=== PATIENT | female | born 1965 | race Caucasian/White ===

== ENCOUNTER 2016-10-22 16:21 | Inpatient (IN) | payer MEDICAID, SELFPAY ==
[~2016-10-22] VITALS: Ht 152.4 cm; Wt 82.7 kg
[2016-10-22] MEDS ORDERED: ZOLP5TAB PO (16:41)
[2016-10-22] MEDS ORDERED: LAMI25TA PO (16:41)
[2016-10-22] MEDS ORDERED: [UNRECOGNIZED DRUG - REMARK] PO (16:41)
[2016-10-22] MEDS ORDERED: HYDR25T PO (16:41)
[2016-10-22] MEDS ORDERED: [UNRECOGNIZED DRUG - CODE] PO (16:41)
[2016-10-22] MEDS ORDERED: FLUO40CA PO (16:41)
[2016-10-22 19:04] LABS: MEAN CORPUSCULAR HEMOGLOBIN 29.2 pg (27.0-33.0); MEAN CORPUSCULAR HGB CONC 31.8 g/dl (32.0-36.5); MEAN CORPUSCULAR VOLUME 91.6 fl (80.0-96.0); RED CELL DISTRIBUTION WIDTH 13.2 % (11.5-14.5); WHITE BLOOD COUNT 7.4 K/mm3 (4.0-10.0)
[2016-10-22 19:20] LABS: METHADONE URINE NEGATIVE (NEGATIVE)
[2016-10-22 19:24] LABS: ALBUMIN 3.4 GM/DL (3.2-5.2); ALKALINE PHOSPHATASE 87 U/L (45-117); ALT/SGPT 25 U/L (12-78); ANION GAP 7 MEQ/L (8-16); AST/SGOT 12 U/L (15-37); BILIRUBIN,DIRECT 0.1 MG/DL (0.0-0.2); BILIRUBIN,TOTAL 0.4 MG/DL (0.2-1.0); BLOOD UREA NITROGEN 12 MG/DL (7-18); CALCIUM LEVEL 8.4 MG/DL (8.5-10.1); CARBON DIOXIDE LEVEL 27 MEQ/L (21-32); CHLORIDE LEVEL 106 MEQ/L (98-107); GLOMERULAR FILTRATION RATE > 60.0 (>51); GLUCOSE, FASTING 95 MG/DL (70-105); POTASSIUM SERUM 4.1 MEQ/L (3.5-5.1); SODIUM LEVEL 140 MEQ/L (136-145); TOTAL PROTEIN 6.5 GM/DL (6.4-8.2)
[2016-10-22] MEDS: raNITIdine SYRUP 150 MG/10 ML UDC PO SCH (21:00)
[2016-10-22] MEDS ORDERED: RANI150T PO (21:36)
[2016-10-22] MEDS ORDERED: LAMO25TA2 PO (21:36)
[2016-10-22] MEDS ORDERED: OMEP20CA3 PO (21:36)
[2016-10-22] MEDS ORDERED: TYLE500T78 PO (21:37)
[2016-10-22] MEDS ORDERED: BENZ10LI12 EXT (21:37)
[2016-10-22 22:07] VITALS: BP 135/85
[2016-10-22] MEDS ORDERED: MOM 30ML SUSPENSION UDC PO PRN (23:45)
[2016-10-22] MEDS ORDERED: MAALOX 30 ML SUSP *UDC PO PRN (23:45)
[2016-10-22] MEDS ORDERED: ACETAMINOPHEN TAB 650MG DOSE (2X325MG) PO PRN (23:45)
[2016-10-23] MEDS: zolPIDEM TARTRATE 5 MG TAB PO PRN ×2 (00:23→20:44)
[2016-10-23 06:40] VITALS: BP 123/69
[2016-10-23] MEDS: lamoTRIgine 25 MG TAB PO SCH (09:05)
[2016-10-23] MEDS: OMEPRAZOLE 20 MG CAP PO SCH (09:05)
[2016-10-23] MEDS: FLUoxetine 20 MG CAP PO SCH (09:06)
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
[2016-10-23 12:38] LABS: CONTROL LINE HCG INT CTR LINE PRESENT
[2016-10-23 18:00] VITALS: BP 135/65
[2016-10-23] MEDS: hydrOXYzine 25 MG TAB PO PRN (20:44)
[2016-10-23] MEDS: raNITIdine SYRUP 150 MG/10 ML UDC PO SCH (20:45)
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
--- NOTE | 2016-10-23 22:24 | ECGEPIP ---
Stationary ECG Study [facility] Test Date: 2016-10-23 Pat Name: DAQUAN PEACE Department: Room: [place] [address] Gender: F Seismic Interpreter: SWETHA : 1965 Requested By: Elena Gillette Order Number: [id number] Reading MD: David Valencia Measurements Intervals Driscoll Rate: 59 P: 54 ND: 131 QRS: 71 QRSD: 100 T: 73 QT: 410 QTc: 407 Interpretive Statements SINUS BRADYCARDIA NO PRIOR Electronically Signed On 10-23-2016 22:24:22 EDT by David Valencia
[2016-10-24 06:24] VITALS: BP 142/65
[2016-10-24] MEDS: FLUoxetine 20 MG CAP PO SCH (08:52)
[2016-10-24] MEDS: OMEPRAZOLE 20 MG CAP PO SCH (08:52)
[2016-10-24] MEDS: lamoTRIgine 25 MG TAB PO SCH (08:53)
[2016-10-24] MEDS ORDERED: BENZOYL PEROXIDE 10% TOP SCH (09:00)
[2016-10-24] MEDS: VITAMIN D 1,000 INTERNATIONAL UNITS TABLET PO SCH (09:30)
[2016-10-24] MEDS: ACETAMINOPHEN 500 MG TAB PO PRN (17:23)
[2016-10-24 18:00] VITALS: BP 117/60
--- NOTE | 2016-10-24 18:21 | IPNPDOC ---
[facility] Progress Note Progress Note DATE OF SERVICE: 10/24/16 HISTORY: Patient is a 51-year-old female who presented to the emergency room after recent worsening of symptoms of depression and anxiety with passive suicidal ideation, as history of 3 prior suicide attempts via overdose on trazodone, pain killers and alcohol. Patient rates current anxiety level as 3/10 , depression 4/10, denies suicidal and homicidal ideation, denies audiovisual hallucinations, denies urge to engage in self-injurious behavior. Patient is observed to be resting in bed between groups, indicates she is experiencing "really bad sciatica," indicates she has received analgesic from nursing. Patient states she has been attending groups and has been visible in lounge. Patient informs health technical writer she feels her medications are "helping" and her symptoms are improved from yesterday, denies symptoms of mood lability, irritability, and racing thoughts, denies need for dosing adjustment at this time. Patient makes no request for discharge and states her boyfriend did not visit last night which is a disappointment but adds she understands due to his health. Patient indicates she is sleeping well, states appetite is stable, energy level remains low, and patient continues to experience reduced concentration and focus. Patient rates sciatica pain as 7/10, states she has been provided with analgesic by nursing, and presents with no signs of acute distress at time of interaction. VITAL SIGNS: See below. NEW TEST RESULTS: Please see below. Labs on admission indicated low MCHC, vitamin D, AST, anion gap. Patient has history of chronic back pain, GERD, endometriosis, 3, laparoscopies secondary to endometriosis, tonsillectomy/adenoidectomy, Niesen fundoplication. Patient denies history of head injury or seizure. HCG negative UDS positive for amphetamine 10/23/16 EKG sinus bradycardia no prior CURRENT MEDICATIONS: See below. MENTAL STATUS EXAMINATION: Patient is 2, mother of 3 children, partner in a relationship of 3 years, mildly disheveled, dressed in hospital clothing, makes good eye contact, is easily engaged, is calm and cooperative, is overweight, ambulates with steady gait, appears stated age. Speech: Is of normal rate, rhythm, volume, coherent, spontaneous Language skills are intact. Thought processes: Clear, goal-directed Thought content: Rational, logical Abstract reasoning: Appears intact Description of associations: Intact Description of abnormal or psychotic thoughts: denies hallucinations, delusions , preoccupation with violence, homicidal or suicidal ideation, and obsessions. Judgment: Fair Insight: Fair Orientation to time, place and person. Recent and remote memory: Appears intact Attention span and concentration: Fair Language: Normal. Fund of knowledge: Adequate Mood: "I feel little better today except for my sciatica pain." Patient appears anxious and depressed, mild mood lability noted Affect: Blunted but brightens, congruent with mood. DIAGNOSES: Adjustment disorder with mixed anxiety and depressed mood, unspecified mood disorder, rule out bipolar disorder ASSESSMENT: Patient appears to be adjusting to unit, is resting in bed between groups due to sciatica pain, has been visible and attending some groups. Patient expresses no concern today about being in hospital and having boyfriend who is chronically ill at home, verbalizes insight pertaining to need for hospitalization at this time for stabilization. Patient reiterates current medication regimen has been taking in the past with good effect, recently underwent antidepressant dose increase (~ 3 weeks) and recently had mood stabilizer increased (3 days ago) as well by outpatient provider, denies medication side effects. Patient denies suicidal and homicidal ideation and verbalizes awareness of how to access supportive services if needed on the unit. Will monitor patient's response to medications and for side effects and will make dosing adjustments as tolerated by patient. Will also continue to evaluate patient's safety, resolution of suicidal ideation, and discharge readiness. MANAGEMENT PLAN: Evaluate need for dosing adjustments to current medication regimen. Continue Prozac 40 mg po q day, Lamictal 50 mg po q day, hydroxyzine 25 mg PRN TID anxiety, and ambien 5 mg po hs PRN insomnia (prescribed by outpatient provider) Maintain safety precautions Patient to attend groups and participate in unit programming to develop coping strategies Engage patient in discharge planning process and arrange meeting with support system to ensure safe discharge planning when appropriate Patient to follow up with PCM upon discharge TIME SPENT: 35 minutes. Vital Signs Vital Signs Date Time Temp Pulse Resp B/P Pulse Ox O2 Delivery O2 Flow Rate FiO2 10/24/16 06:24 98.4 65 16 142/65 10/22/16 22:07 97 Room Air Current Medications Current Medications Acetaminophen (Tylenol Tab) 1,000 mg Q6HP PRN PO HEADACHE or DISCOMFORT Last administered on 10/24/16 08:52; Start 3/22/17 at 23:45; Stop 10/24/16 at 17:04 ; Status DC Acetaminophen (Tylenol Tab) 1,000 mg Q6HP PRN PO HEADACHE or DISCOMFORT Last administered on 10/24/16 17:23; Start 10/24/16 at 17:04; Stop 11/21/16 at 23:44 Al Hydrox/Mg Hydrox/Simethicone (Mylanta) 30 ml Q4HP PRN PO HEARTBURN/ INDIGESTION; Start 10/22/16 at 23:45; Stop 11/21/16 at 23:44 Fluoxetine HCl (PROzac) 40 mg DAILY PO Last administered on 10/24/16 08:52; Start 10/23/16 at 09:00; Stop 11/22/16 at 08:59 Home Med (Med Rec Complete!) ASDIRECTED XX ; Start 10/22/16 at 21:45; Stop at 21:45; Status DC Hydroxyzine HCl (Atarax) 25 mg TIDP PRN PO ANXIETY Last administered on 20:44; Start 10/22/16 at 23:45; Stop 11/21/16 at 23:44 Lamotrigine (LaMICtal) 50 mg QAM PO Last administered on 10/24/16 08:53; Start 10/23/16 at 09:00; Stop 11/22/16 at 08:59 Magnesium Hydroxide (Milk Of Magnesia) 30 ml DAILYPRN PRN PO CONSTIPATION; Start 10/22/16 at 23:45; Stop 11/21/16 at 23:44 Miscellaneous (Unresolved Patient Own Med Order) SEE LABEL COMMENTS UNRESOLVED XX ; Start 10/23/16 at 00:01; Stop 11/22/16 at 00:00 Omeprazole (PriLOSEC) 20 mg DAILY PO Last administered on 10/24/16 08:52; Start 10/23/16 at 09:00; Stop 11/22/16 at 08:59 Patient Own Medication (Patient'S Own Med) Benzoyl Peroxide Wash ... DAILY TOP ; Start 10/24/16 at 09:00; Stop 11/23/16 at 08:59; Status Future Hold Ranitidine HCl (Zantac) 150 mg QHS PO Last administered on 10/23/16 20:45; Start 10/22/16 at 21:00; Stop 11/21/16 at 20:59 Vitamin D (Vitamin D) 2,000 units DAILY PO Last administered on 10/24/16 09:30 ; Start 10/24/16 at 09:00; Stop 11/23/16 at 08:59 Zolpidem Tartrate (Ambien) 5 mg QHSP PRN PO SLEEP Last administered on 20:44; Start 10/22/16 at 23:45; Stop 10/29/16 at 23:44 Allergies Coded Allergies: Clarithromycin (Verified Allergy, Mild, diarrhea, 10/22/16) Codeine (Verified Allergy, Unknown, itching, 10/22/16) Karina Tejada Oct 24, 2016 18:21
[2016-10-24] MEDS: hydrOXYzine 25 MG TAB PO PRN (20:34)
[2016-10-24] MEDS: zolPIDEM TARTRATE 5 MG TAB PO PRN (20:34)
[2016-10-24] MEDS: raNITIdine SYRUP 150 MG/10 ML UDC PO SCH (20:34)
[2016-10-25 06:46] VITALS: BP 138/66
[2016-10-25] MEDS: OMEPRAZOLE 20 MG CAP PO SCH (08:57)
[2016-10-25] MEDS: lamoTRIgine 25 MG TAB PO SCH (08:57)
[2016-10-25] MEDS: FLUoxetine 20 MG CAP PO SCH (08:57)
[2016-10-25] MEDS: VITAMIN D 1,000 INTERNATIONAL UNITS TABLET PO SCH (08:57)
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
[2016-10-25 18:00] VITALS: BP 132/88
[2016-10-25] MEDS: zolPIDEM TARTRATE 5 MG TAB PO PRN (20:21)
[2016-10-25] MEDS: raNITIdine SYRUP 150 MG/10 ML UDC PO SCH (20:22)
[2016-10-25] MEDS: hydrOXYzine 25 MG TAB PO PRN (20:22)
[2016-10-26 06:20] VITALS: BP 158/83
[2016-10-26] MEDS: VITAMIN D 1,000 INTERNATIONAL UNITS TABLET PO SCH (09:18)
[2016-10-26] MEDS: ACETAMINOPHEN 500 MG TAB PO PRN (09:18)
[2016-10-26] MEDS: lamoTRIgine 25 MG TAB PO SCH (09:18)
[2016-10-26] MEDS: OMEPRAZOLE 20 MG CAP PO SCH (09:19)
[2016-10-26] MEDS: FLUoxetine 20 MG CAP PO SCH (09:19)
--- NOTE | 2016-10-26 12:32 | IPN ---
DATE: 10/26/2016 I met with Ms. Valentino today. She described her history of depression and her most recent difficulties concerning being away from [place] and concerning the fact that her son made a suicide attempt and was sent to care in [place]. He will be back in a number of days. The patient states in [place] she did well on Prozac, but not on a lose dose and also felt that Wellbutrin helped her significantly in the past. She is upset that she has to be back on medicine, but also told us that she has had significant high and low episodes. Most recently when she went to the clinic and complained of high episodes, she was placed on Prozac. She states she has history of high and low episodes. She is also on Lamictal and requested Wellbutrin. MENTAL STATUS EXAMINATION: She was tearful, but there was no disturbance of speech regarding articulation or volume. She had no disturbances of thought. She had no disturbances of associations nor did she have any hallucinations, delusions, obsessions, compulsions, or phobias. Her judgment and insight are fair. She is fully oriented. Her recent and remote memory are intact. Her attention and concentration is good. No disturbances of language. Full fund of knowledge. Her mood is low, anxious. Her affect is sad. She wants to go back to [place] as soon as possible. MEDICATIONS: At this time, including bupropion 150 mg, duloxetine 60 mg, Lamictal 50 mg a day and Ambien as needed for sleep. DIAGNOSIS: Bipolar disorder, depressed type.
[2016-10-26] MEDS: buPROPion **XL** TABLET 150MG (WELLBUTRIN XL) PO SCH (12:41)
[2016-10-26 18:00] VITALS: BP 108/62
[2016-10-26] MEDS: zolPIDEM TARTRATE 5 MG TAB PO PRN (21:46)
[2016-10-26] MEDS: raNITIdine SYRUP 150 MG/10 ML UDC PO SCH (21:46)
[2016-10-26] MEDS: hydrOXYzine 25 MG TAB PO PRN (21:46)
[2016-10-27 06:00] VITALS: BP 122/62
[2016-10-27] MEDS: buPROPion **XL** TABLET 150MG (WELLBUTRIN XL) PO SCH (08:47)
[2016-10-27] MEDS: lamoTRIgine 25 MG TAB PO SCH (08:47)
[2016-10-27] MEDS: VITAMIN D 1,000 INTERNATIONAL UNITS TABLET PO SCH (08:47)
[2016-10-27] MEDS: OMEPRAZOLE 20 MG CAP PO SCH (08:47)
[2016-10-27] MEDS: FLUoxetine 20 MG CAP PO SCH (08:47)
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
[2016-10-27 18:00] VITALS: BP 135/68
[2016-10-27] MEDS: zolPIDEM TARTRATE 5 MG TAB PO PRN (20:10)
[2016-10-27] MEDS: raNITIdine SYRUP 150 MG/10 ML UDC PO SCH (20:10)
[2016-10-27] MEDS: hydrOXYzine 25 MG TAB PO PRN (20:10)
[2016-10-28 06:00] VITALS: BP 107/51
[2016-10-28] MEDS: FLUoxetine 20 MG CAP PO SCH (08:10)
[2016-10-28] MEDS: OMEPRAZOLE 20 MG CAP PO SCH (08:10)
[2016-10-28] MEDS: buPROPion **XL** TABLET 150MG (WELLBUTRIN XL) PO SCH (08:10)
[2016-10-28] MEDS: VITAMIN D 1,000 INTERNATIONAL UNITS TABLET PO SCH (08:10)
[2016-10-28] MEDS: lamoTRIgine 25 MG TAB PO SCH (08:10)
[2016-10-28] MEDS ORDERED: FLUO20CA9 PO (12:50)
[2016-10-28] MEDS ORDERED: BUPR150T3 PO (12:50)
[2016-10-28] MEDS ORDERED: LAMI25TA PO (12:50)
[2016-10-28] MEDS ORDERED: HYDR25T PO (12:50)
[2016-10-28] MEDS ORDERED: D200CAP3 PO (13:18)
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
== END 2016-10-28 13:35 | disposition home or self-care (01) | DRG 755 ==
LOC: M ED 17:32 → M ED INP 20:31 → M PSY 22:10
PROVIDERS: ADMIT Psychiatry & Neurology Psychiatry; ATTEND Psychiatry & Neurology Psychiatry
DX: F43.23 Adjustment disorder with mixed anxiety and depressed mood (principal); F31.9 Bipolar disorder, unspecified; F41.9 Anxiety disorder, unspecified; M54.40 Lumbago with sciatica, unspecified side; K21.9 Gastro-esophageal reflux disease without esophagitis; N80.9 Endometriosis, unspecified; Z79.899 Other long term (current) drug therapy; Z63.79 Other stressful life events affecting family and household; Z88.5 Allergy status to narcotic agent; Z88.1 Allergy status to other antibiotic agents; Z91.5 Personal history of self-harm; Z81.8 Family history of other mental and behavioral disorders

== ENCOUNTER → 2017-01-01 | Outpatient (REF) | payer MEDICAID ==
[~2017-01-01] MED LIST: BENZ10LI12 EXT; BUPR150T3 PO; D200CAP3 PO; FLUO20CA9 PO; FLUO40CA PO; HYDR25T PO; LAMI25TA PO; LAMO25TA2 PO; OMEP20CA3 PO; RANI150T PO; TYLE500T78 PO; ZOLP5TAB PO; [UNRECOGNIZED DRUG - CODE] PO; [UNRECOGNIZED DRUG - REMARK] PO
== END ==
LOC: M LABNEURO 15:36
PROVIDERS: ATTEND Psychiatry & Neurology Neurology
DX: R51 Headache (principal)